=== PATIENT | male | born 1985 | race African-American/Black ===

== ENCOUNTER 2022-08-10 10:55 | Emergency (ER) | payer OTHER ==
[2022-08-10 11:13] VITALS: TEMP 98.1
--- NOTE | 2022-08-10 12:47 | ED ---
General Adult HPI - General Chief complaint: ENT Stated complaint: sore throat Time Seen by Provider: 08/10/22 12:20 Source: patient, RN notes reviewed, old records reviewed Mode of arrival: ambulatory Limitations: no limitations - History of Present Illness Initial comments: this is a 37-year-old male who presents emergency Department complaining for the last few days he's had quite a bit of a sore throat is gotten worse per patient states he lifted. He saw that he had some exudate on his tonsils they came in to be evaluated. Patient states swallowing does hurt. Patient states is bilateral. Patient also was noted he had some bumps in the anterior aspect of his neck. Patient states he also had a fever at home. Patient denies any difficulty breathing first breath per patient denies any chest pain or palpitations. Patient denies any other symptoms at this time. - Related Data Previous Rx's Medication Instructions Recorded Amoxicillin 500 mg PO Q8H #30 capsule 08/10/22 predniSONE [Deltasone] 40 mg PO DAILY #8 tab 08/10/22 Allergies Allergy/AdvReac Type Severity Reaction Status Date / Time No Known Allergies Allergy Verified 08/10/22 11:13 Review of Systems ROS Statement: Those systems with pertinent positive or pertinent negative responses have been documented in the HPI. ROS Other: All systems not noted in ROS Statement are negative. Past Medical History Past Medical History: No Reported History History of Any Multi-Drug Resistant Organisms: None Reported Past Surgical History: No Surgical Hx Reported Past Psychological History: No Psychological Hx Reported Smoking Status: Current every day smoker Past Alcohol Use History: None Reported Past Drug Use History: None Reported General Exam - General Exam Comments Initial Comments: GENERAL Patient is well-developed and well-nourished. Patient is in mild distress. EYES Patient's pupils are equal and round. Extraocular motion is intact ENT Patient's tonsils are erythematous with exudate bilaterally. Patient has cervical lymphadenopathy bilaterally SKIN Unremarkable NEURO The patient is alert and oriented 3 PYSCH Patient has normal interpersonal interactions. MUSCULOSKELETAL This is all 4 extremities any movement full range of motion Limitations: no limitations Course Vital Signs 08/10/22 11:11 Temperature 98.1 F Pulse Rate 94 Respiratory 8 L Rate Blood Pressure 139/86 O2 Sat by Pulse 100 Oximetry Medical Decision Making - Medical Decision Making COVID test was negative strep test is negative. Patient has erythematous tonsils with exudate as well as lymphadenopathy within the cervical region. Patient also has no posterior lymphadenopathy. Patient also has a fever and because of all this I'm going to treat the patient and he will follow-up with his primary medical care doctor to get the actual culture results of his throat. - Lab Data Lab Results 08/10/22 08/10/22 Range/Units 11:14 11:17 Coronavirus (PCR) Not Detected (Not Detectd) Group A Strep (PCR) NOT DETECTED (Not Detectd) Disposition Clinical Impression: Strep throat Disposition: HOME SELF-CARE Condition: Good Instructions (If sedation given, give patient instructions): Strep Throat (ED) Prescriptions: Amoxicillin 500 mg PO Q8H #30 capsule predniSONE [Deltasone] 40 mg PO DAILY #8 tab Is patient prescribed a controlled substance at d/c from ED?: No Referrals: None,Stated [Primary Care Provider] - 1-2 days Time of Disposition: 12:43
[2022-08-10 13:23] VITALS: BP 110/60; PULSE 68; RESP 16
== END 2022-08-10 13:23 | disposition home or self-care (01) ==
LOC: EC 10:55
DX: A49.1 Streptococcal infection, unspecified site (principal); F17.200 Nicotine dependence, unspecified, uncomplicated; Z20.822 Contact with and (suspected) exposure to COVID-19
CPT/HCPCS: 87635; 87651; 99283

== ENCOUNTER 2023-12-07 15:37 | Emergency (ER) | payer OTHER ==
--- NOTE | 2023-12-07 15:58 | ED ---
Male Urogenital HPI - General Source: patient, RN notes reviewed <Kendy Vinson - Last Filed: 12/07/23 15:57> <Kristofer Grider - Last Filed: 12/07/23 22:33> - General Stated complaint: Rash on Penis Time Seen by Provider: 12/07/23 15:57 - History of Present Illness Initial comments: Patient is a 38-year-old male presented to the ER with a chief complaint of a rash on his penis. Patient states he was recently incarcerated and his penis fell into the toilet water. He states he has a red jc on the tip of his penis. Denies any discharge. (Kendy Vinson) Patient is a 38-year-old male who presents emergency department complaining of possible rash on his penis. Recently was incarcerated and had dirty toilet water touch the skin on his penis. Since that time has little bit of red and inflammation that he noticed today. Is concerned for possible skin infection. Denies any urethral discharge or dysuria or hematuria. Would like to be tested for STDs. No significant past medical history. Presents for further evaluation at this time. Originally evaluated as a quick note. (Kristofer Grider) - Related Data Previous Rx's Medication Instructions Recorded Amoxicillin 500 mg PO Q8H #30 capsule 08/10/22 predniSONE [Deltasone] 40 mg PO DAILY #8 tab 08/10/22 Cephalexin [Keflex] 500 mg PO Q12HR 7 Days #14 cap 12/07/23 Allergies Allergy/AdvReac Type Severity Reaction Status Date / Time No Known Allergies Allergy Verified 08/10/22 11:13 Review of Systems ROS Other: All systems not noted in ROS Statement are negative. <Kendy Vinson - Last Filed: 12/07/23 15:57> ROS Other: All systems not noted in ROS Statement are negative. <Kristofer Grider - Last Filed: 12/07/23 22:33> ROS Statement: Those systems with pertinent positive or pertinent negative responses have been documented in the HPI. Past Medical History Past Medical History: No Reported History History of Any Multi-Drug Resistant Organisms: None Reported Past Surgical History: No Surgical Hx Reported Past Psychological History: No Psychological Hx Reported Smoking Status: Current every day smoker Past Alcohol Use History: None Reported Past Drug Use History: None Reported <Kendy Vinson - Last Filed: 12/07/23 15:57> General Exam <Kendy Vinson - Last Filed: 12/07/23 15:57> <Kristofer Grider - Last Filed: 12/07/23 22:33> - General Exam Comments Initial Comments: Visual Physical Exam Vital signs reviewed General: Well-appearing, nontoxic, no acute distress. Head: Normocephalic, atraumatic Eyes: PERRLA, EOMI ENT: Airway patent Chest: Nonlabored breathing Skin: No visual rash, normal skin tone Neuro: Alert and oriented 3 Musculoskeletal: No gross abnormalities (Kendy Vinson) General: Appears in no acute distress. HEAD: Normal with no signs of head trauma. EYES: EOMI. ENT: Hearing grossly intact. RESPIRATORY: No respiratory distress. C/V: Regular rate and rhythm. ABD: Abdomen is nondistended. : Patient has a small erythematous lesion located on the shaft of the penis. Small, no discharge, appears to be more of a contact irritation. No obvious evidence of infection. No urethral discharge. No testicular tenderness. EXT: No obvious deformity. SKIN: No rashes or lesions observed on exposed skin. NEURO: Alert and oriented. (Kristofer Grider) Course Vital Signs 12/07/23 15:56 Temperature 98.4 F Pulse Rate 85 Respiratory 16 Rate Blood Pressure 157/80 O2 Sat by Pulse 100 Oximetry Medical Decision Making <Kendy Vinson - Last Filed: 12/07/23 15:57> <Kristofer Grider - Last Filed: 12/07/23 22:33> - Medical Decision Making I performed the quick note portion of this chart. Electronically signed by Kendy Vinson PA-C (Kendy Vinson) Was pt. sent in by a medical professional or institution (SHREYA Reardon, DRUPAL ARCHITECT, urgent care, hospital, or retirement...) When possible be specific @ -No Did you speak to anyone other than the patient for history (EMS, parent, family, police, friend...)? What history was obtained from this source @ -No Did you review nursing and triage notes (agree or disagree)? Why? @ -I reviewed and agree with nursing and triage notes Were old charts reviewed (outside hosp., previous admission, EMS record, old EKG, old radiological studies, urgent care reports/EKG's, retirement records)? Report findings @ -No old charts were reviewed Differential Diagnosis (chest pain, altered mental status, abdominal pain women, abdominal pain men, vaginal bleeding, weakness, fever, dyspnea, syncope, h eadache, dizziness, GI bleed, back pain, seizure, CVA, palpatations, mental health, musculoskeletal)? @ -Cellulitis, STD, UTI. This list is not all inclusive. EKG interpreted by me (3pts min.). @ -None done X-rays interpreted by me (1pt min.). @ -None done CT interpreted by me (1pt min.). @ -None done U/S interpreted by me (1pt. min.). @ -None done What testing was considered but not performed or refused? (CT, X-rays, U/S, labs)? Why? @ -None What meds were considered but not given or refused? Why? @ -None Did you discuss the management of the patient with other professionals (john jean-baptiste i.eMallika Reardno, PA, DRUPAL ARCHITECT, lab, RT, psych nurse, home health care social worker, distribution center associate, teacher, bank secrecy act officer, bilingual case manager)? Give summary @ -No Was smoking cessation discussed for >3mins.? @ -No Was critical care preformed (if so, how long)? @ -No Were there social determinants of health that impacted care today? How? (Homelessness, low income, unemployed, alcoholism, drug addiction, transportation, low edu. Level, literacy, decrease access to med. care, usp, rehab)? @ -No Was there de-escalation of care discussed even if they declined (Discuss DNR or withdrawal of care, Hospice)? DNR status @ -No What co-morbidities impacted this encounter? (DM, HTN, Smoking, COPD, CAD, Cancer, CVA, ARF, Chemo, Hep., AIDS, mental health diagnosis, sleep apnea, morbid obesity)? @ -None Was patient admitted / discharged? Hospital course, mention meds given and route, prescriptions, significant lab abnormalities, going to OR and other pertinent info. @ -Based on the patient's presentation and physical exam, presents emergency department for possible lesion on his penis. On exam, appears to be more contact irritation related as there is no obvious evidence of infection however did discuss with the patient that we will cover him with Keflex. Patient was in agreement this plan. He requested STD and UTI testing which will be completed. He has no symptoms of it at this time. He was in agreement this plan. Will be discharged home at this time. Vital signs are within acceptable limits. I will provide the patient with a prescription for Keflex. I instructed the patient to follow up with their PCP in the next 1-3 days.. I explained that the patient should return to the emergency department if they experience any worsening symptoms. Strict return precautions were discussed with the patient. The patient expressed understanding of these instructions. I answered all questions that the patient had. The patient was discharged home in good condition with their prescriptions and follow up information. Undiagnosed new problem with uncertain prognosis? @ -No Drug Therapy requiring intensive monitoring for toxicity (Heparin, Nitro, Insulin, Cardizem)? @ -No Were any procedures done? @ -No Diagnosis/symptom? @ -Cellulitis Acute, or Chronic, or Acute on Chronic? @ -Acute Uncomplicated (without systemic symptoms) or Complicated (systemic symptoms)? @ -Uncomplicated Side effects of treatment? @ -No Exacerbation, Progression, or Severe Exacerbation? @ -No Poses a threat to life or bodily function? How? (Chest pain, [place], [place], pneumonia, PE, COPD, DKA, ARF, appy, cholecystitis, CVA, Diverticulitis, Homicidal, Suicidal, threat to staff... and all critical care pts) @ -No (Kristofer Grider) Disposition <Kendy Vinson - Last Filed: 12/07/23 15:57> Is patient prescribed a controlled substance at d/c from ED?: No Time of Disposition: 22:19 <Kristofer Grider - Last Filed: 12/07/23 22:33> Clinical Impression: Cellulitis Disposition: HOME SELF-CARE Condition: Good Instructions (If sedation given, give patient instructions): Cellulitis (ED) Prescriptions: Cephalexin [Keflex] 500 mg PO Q12HR 7 Days #14 cap Referrals: None,Stated [Primary Care Provider] - 1-2 days
[2023-12-07 15:59] VITALS: RESP 16; TEMP 98.4
[2023-12-07] MEDS: CEPHALEXIN 500 MG CAP PO STA (22:29)
[2023-12-07 22:51] LABS: Appearance,Urine Clear (Clear); Bilirubin,Urine Negative (Negative); Blood,Urine Trace (Negative); Calcium Oxalate Crystals,Urine Rare /hpf; Color,Urine Yellow; Glucose,Urine (UA) Negative (Negative); Ketones,Urine Negative (Negative); Leukocyte Esterase,Urine Negative (Negative); Mucus,Urine Occasional /hpf; Nitrite,Urine Negative (Negative); Protein,Urine Trace (Negative); RBC,Urine 11 /hpf (0-5); Specific Gravity,Urine 1.029 (1.001-1.035); Urobilinogen,Urine <2.0 mg/dL (<2.0); WBC,Urine 1 /hpf (0-5)
[2023-12-07 22:53] VITALS: BP 134/93; PULSE 84
== END 2023-12-07 22:31 | disposition home or self-care (01) ==
LOC: EC 15:37
DX: N48.22 Cellulitis of corpus cavernosum and penis (principal); F17.200 Nicotine dependence, unspecified, uncomplicated
CPT/HCPCS: 81001; 87491; 87591; 99283